=== PATIENT | female | born 1950 | race Caucasian/White ===

== ENCOUNTER 2016-08-19 08:46 | Day surgery (SDC) | payer MEDICARE, OTHER ==
[2016-08-19] MEDS ORDERED: LACTATED RINGERS 1,000 ML IV ONE ×2 (09:19→11:38)
[2016-08-19] MEDS ORDERED: fentaNYL 250 MCG/5 ML VIAL IVP ONE (11:09)
[2016-08-19] MEDS ORDERED: MIDAZOLAM 2 MG/2 ML VIAL IVP ONE (11:09)
== END 2016-08-19 08:47 | disposition home or self-care (01) ==
PROC: 0DBL8ZZ Excision of Transverse Colon, Via Natural or Artificial Opening Endoscopic (ICD-10-PCS; principal; 2016-08-19 10:00)
DX: Z12.11 Encounter for screening for malignant neoplasm of colon (principal); D12.3 Benign neoplasm of transverse colon; K57.30 Diverticulosis of large intestine without perforation or abscess without bleeding; K64.8 Other hemorrhoids; Z80.0 Family history of malignant neoplasm of digestive organs; R03.0 Elevated blood-pressure reading, without diagnosis of hypertension; Z83.3 Family history of diabetes mellitus; E78.5 Hyperlipidemia, unspecified; E55.9 Vitamin D deficiency, unspecified; Z13.29 Encounter for screening for other suspected endocrine disorder
CPT/HCPCS: 45380; 80053; 80061; 83036; 84443; 85025; 88305; J3010; J7120

== ENCOUNTER 2016-08-19 09:38 | Outpatient (CLI) | payer MEDICARE, OTHER | END 2016-08-19 09:39 | disposition home or self-care (01) | DX: R03.0 Elevated blood-pressure reading, without diagnosis of hypertension (principal); Z83.3 Family history of diabetes mellitus; E78.5 Hyperlipidemia, unspecified; E55.9 Vitamin D deficiency, unspecified; Z13.29 Encounter for screening for other suspected endocrine disorder ==

== ENCOUNTER 2020-01-26 07:00 | Outpatient (CLI) | payer MEDICARE, OTHER | END 2020-01-26 23:59 | disposition home or self-care (01) | LOC: LAB.R 07:00 | PROVIDERS: ATTEND Registered Nurse | DX: R19.4 Change in bowel habit (principal) | CPT/HCPCS: 81599; 82274; 87045; 87046; 87177; 87209; 87427 ==

== ENCOUNTER 2020-01-27 07:50 | Outpatient (CLI) | payer MEDICARE, OTHER ==
[2020-01-27 15:02] LABS: BASOPHILS % (AUTO) 0.6 %; EOSINOPHILS # (AUTO) 0.2 10^3/uL (0.0-0.7); EOSINOPHILS % (AUTO) 3.5 %; LYMPHOCYTES # (AUTO) 1.4 10^3/uL (1.5-3.5); LYMPHOCYTES % (AUTO) 28.5 %; MEAN CORPUSCULAR HEMOGLOBIN 28.8 pg (27.0-31.0); MEAN CORPUSCULAR VOLUME 92.9 fL (81.0-99.0); MONOCYTES # (AUTO) 0.4 10^3/uL (0.0-1.0); MONOCYTES % (AUTO) 8.5 %; NEUTROPHILS # (AUTO) 2.8 10^3/uL (1.5-6.6); NEUTROPHILS % (AUTO) 58.7 %; PLT - PLATELET COUNT 208 10^3/uL (130-450); RED BLOOD COUNT 4.51 10^6/uL (4.20-5.40); RED CELL DISTRIBUTION WIDTH 13.4 % (12.0-15.0); WHITE BLOOD COUNT 4.8 x10^3/uL (4.8-10.8)
[2020-01-27 15:28] LABS: ALBUMIN 4.1 g/dL (3.2-5.5); ALBUMIN/GLOBULIN RATIO 1.4 (1.0-2.2); ALKALINE PHOSPHATASE 52 IU/L (42-121); ALT ALANINE AMINOTRANSFERASE 17 IU/L (10-60); AMYLASE 88 U/L (28-100); AST ASPARTATE AMINOTRANSFERASE 22 IU/L (10-42); BILIRUBIN,TOTAL 0.8 mg/dL (0.2-1.0); BUN - BLOOD UREA NITROGEN 13 mg/dL (6-20); CALCIUM 9.5 mg/dL (8.5-10.3); CARBON DIOXIDE - CO2 26 mmol/L (21-32); CHLORIDE 105 mmol/L (101-111); CHOL/HDL RATIO 3.4 (<4.4); CHOLESTEROL 299 mg/dL; CREATININE 0.9 mg/dL (0.4-1.0); GLUCOSE 91 mg/dL (70-100); HDL CHOLESTEROL 88 mg/dL; LDL CHOLESTEROL,CALCULATED 197 mg/dL; LDL/HDL RATIO 2.2 (<4.4); LIPASE 38 U/L (22-51); SODIUM 138 mmol/L (135-145); VLDL CHOLESTEROL 14 mg/dL
[2020-01-27 15:31] LABS: CRP - C-REACTIVE PROTEIN < 1.0 mg/dL (0-1.0)
== END 2020-01-27 07:51 | disposition home or self-care (01) ==
LOC: LAB.S 07:50
PROVIDERS: ATTEND Registered Nurse
DX: E78.5 Hyperlipidemia, unspecified (principal); R19.4 Change in bowel habit; F43.21 Adjustment disorder with depressed mood; K57.90 Diverticulosis of intestine, part unspecified, without perforation or abscess without bleeding; Z83.3 Family history of diabetes mellitus
CPT/HCPCS: 36415; 80053; 80061; 82150; 83690; 83721; 84443; 85025; 86140; 87177; 87209

== ENCOUNTER 2020-04-18 12:57 | Outpatient (CLI) | payer MEDICARE, OTHER ==
--- NOTE | 2020-04-25 11:18 | Mammography Report ---
BILATERAL DIGITAL SCREENING MAMMOGRAM 3D/2D: 04/18/2020 CLINICAL: Routine screening. Additional films were requested but not obtained. There are scattered fibroglandular elements in bot h breasts. There is an oval equal density focal asymmetry with an indistinct margin in the right breast at 8 o'c lock posterior depth. There is an oval equal density focal asymmetry with an indistinct margin in the left breast central t o the nipple anterior depth. No other significant masses or calcifications are seen in either breast. IMPRESSION: INCOMPLETE: NEED PRIOR STUDIES FOR COMPARISON The oval equal density focal asymmetry in the right breast at 8 o'clock posterior depth is indetermin ate. Mediolateral and spot compression views as well as additional views with possible ultrasound ar e recommended. The oval equal density focal asymmetry in the left breast central to the nipple anterior depth is ind eterminate. Mediolateral and spot compression views as well as additional views with possible ultras ound are recommended. This exam was interpreted at Station ID: [id number]. NOTE: For mammograms, a report in lay terms will be sent to the patient. Approximately 15% of breast malignancies will not be visualized mammographically. In the management of a palpable breast mass, a negative mammogram must not discourage biopsy of a clinically suspicious lesion. Electronically Signed By: Albert wong/kendra:04/25/2020 09:01:39 ACR BI-RADS Category 0 Need prior studies for comparison 3340F PARENCHYMAL PATTERN: (A) - The breast(s) demonstrate(s) scattered fibroglandular densities. BI-RADS CATEGORY: (0) - 0 Mammo and [place] [id number] Immediate follow-up LATERALITY: (B)
== END 2020-04-18 12:58 | disposition home or self-care (01) ==
LOC: DI 12:57
PROVIDERS: ATTEND Registered Nurse
DX: Z12.31 Encounter for screening mammogram for malignant neoplasm of breast (principal); R92.8 Other abnormal and inconclusive findings on diagnostic imaging of breast

== ENCOUNTER 2020-06-12 10:10 | Outpatient (CLI) | payer MEDICARE, OTHER ==
--- NOTE | 2020-06-13 10:09 | Ultrasound Report ---
LIMITED ULTRASOUND OF RIGHT BREAST: 06/12/2020 CLINICAL: Patient returns today to evaluate a focal asymmetry in the right breast. Comparison is made to exams dated: 06/12/2020 mammogram, 04/18/2020 mammogram - [facility], 09/27/2012 mammogram, and 10/11/2008 mammogram - [facility]. Ultrasound of the right breast 8 o'clock region was performed. Dense fibroglandular tissue but no mass is identifed in the mammographic area of concern in the right breast at the 8 o'clock position 11 cm from the nipple. The fibroglandular tissue has similar morpho logic features to the previously seen focal asymmetry and is felt to account for the mammography find ing. IMPRESSION: NEGATIVE There is no sonographic evidence of malignancy. A 1 year screening mammogram is recommended. This exam was interpreted at Station ID: [id number]. Electronically Signed By: Santiago cleveland/kendra:06/12/2020 12:46:26 Ultrasound BI-RADS: 1 Negative BI-RADS CATEGORY: (1) - 1 RECOMMENDATION: (ANNUAL) - Recommend routine annual screening mammography. [id number] 1 year screening LATERALITY: (B)
--- NOTE | 2020-06-13 10:09 | Ultrasound Report ---
LIMITED ULTRASOUND OF LEFT BREAST: 06/12/2020 CLINICAL: Patient returns today to evaluate a focal asymmetry in the left breast. Comparison is made to exams dated: 06/12/2020 mammogram, 04/18/2020 mammogram - [facility], 09/27/2012 mammogram, and 10/11/2008 mammogram - [facility]. Ultrasound of the left breast 4 o'clock, and retroareolar regions was performed. Dense fibroglandular tissue but no mass is identifed in the mammographic area of concern at the 4 o'c lock position retroareolar depth. IMPRESSION: NEGATIVE There is no sonographic evidence of malignancy. A 1 year screening mammogram is recommended. This exam was interpreted at Station ID: [id number]. Electronically Signed By: Santiago cleveland/kendra:06/12/2020 12:47:39 Ultrasound BI-RADS: 1 Negative BI-RADS CATEGORY: (1) - 1 RECOMMENDATION: (ANNUAL) - Recommend routine annual screening mammography. [id number] 1 year screening LATERALITY: (B)
--- NOTE | 2020-06-13 10:09 | Mammography Report ---
BILATERAL DIGITAL DIAGNOSTIC MAMMOGRAM 3D/2D: 06/12/2020 CLINICAL: Additional evaluation requested from prior study. Comparison is made to exams dated: 04/18/2020 mammogram - [facility], 09/27/2012 [facility], and 10/11/2008 mammogram - [facility]. There are scattered fibroglandular north fork ents in both breasts. There is an irregular equal density focal asymmetry in the right breast at 8 o'clock posterior depth. There is an oval equal density focal asymmetry in the left breast at 4 o'clock in the retroareolar re gion. No other significant masses or calcifications are seen in either breast. IMPRESSION: INCOMPLETE: NEEDS ADDITIONAL IMAGING EVALUATION The irregular equal density focal asymmetry in the right breast at 8 o'clock posterior depth has a di fferential diagnosis of fibroglandular tissue and is indeterminate. An ultrasound is recommended. The oval equal density focal asymmetry in the left breast at 4 o'clock in the retroareolar region has a differential diagnosis of fibroglandular tissue and is indeterminate. An ultrasound is recommende d. This exam was interpreted at Station ID: [id number]. NOTE: For mammograms, a report in lay terms will be sent to the patient. Approximately 15% of breast malignancies will not be visualized mammographically. In the management of a palpable breast mass, a negative mammogram must not discourage biopsy of a clinically suspicious lesion. SUMMARY: Targeted ultrasound is recommended for further evaluation and will be scheduled immediately following this exam. Electronically Signed By: Santiago cleveland/kendra:06/12/2020 12:42:33 ACR BI-RADS Category 0: Incomplete 3340F PARENCHYMAL PATTERN: (A) - The breast(s) demonstrate(s) scattered fibroglandular densities. BI-RADS CATEGORY: (0) - 0 Ultrasound [id number] Immediate follow-up LATERALITY: (B)
== END 2020-06-12 10:11 | disposition home or self-care (01) ==
LOC: DI 10:10
PROVIDERS: ATTEND Registered Nurse
DX: R92.8 Other abnormal and inconclusive findings on diagnostic imaging of breast (principal)

== ENCOUNTER 2021-01-21 14:13 | Outpatient (CLI) | payer MEDICARE, OTHER ==
--- NOTE | 2021-01-21 16:23 | DEXA Report ---
PROCEDURE: Dexa Spine and/or Hip INDICATIONS: POST MENOPAUSAL TECHNIQUE: Dual energy x-ray absorptiometry (DXA) was performed on a [employer] [facility] System. Regions measur ed are the AP Spine, femoral neck, and if needed forearm. Forearm was obtained secondary to excessive spinal densities. COMPARISON: None. FINDINGS: Lumbar Spine: Bone Mineral Density 1.248 g/cm/cm,T score 0.6, normal Left Hip: Bone Mineral Density 0.862 g/cm/cm,T score -1.2, minimal osteopenia Left Femoral Neck: Bone Mineral Density 0.880 g/cm/cm, T score -1.1, minimal osteopenia Left forearm: Bone Mineral Density 0.547 g/cm/cm, T score -2.1, moderate to severe osteopenia. (T score greater or equal to -1.0: NORMAL) (T score from -1.1 to -2.4: OSTEOPENIA) (T score less than or equal to -2.5 to: OSTEOPOROSIS) Impression: Moderate to severe osteopenia in the forearm as above. Patients with diagnosis of osteoporosis or osteopenia should have regular bone mineral density assess ment. For those eligible for Medicare, routine testing is allowed once every 2 years. Testing frequ ency can be increased for patients who have rapidly progressing disease or for those who are receivin g medical therapy to restore bone mass. Reviewed by: Aissatou Miguel MD on 01/21/2021 4:22 PM PDT Approved by: Aissatou Miguel MD on 01/21/2021 4:22 PM PDT Station ID: [id number]
== END 2021-01-21 14:14 | disposition home or self-care (01) ==
LOC: DI 14:13
PROVIDERS: ATTEND Registered Nurse
DX: Z78.0 Asymptomatic menopausal state (principal); M85.89 Other specified disorders of bone density and structure, multiple sites

== ENCOUNTER 2021-02-19 07:30 | Outpatient (CLI) | payer MEDICARE, OTHER ==
[2021-02-19 14:51] LABS: BASOPHILS # (AUTO) 0.1 10^3/uL (0.0-0.1); BASOPHILS % (AUTO) 0.8 %; EOSINOPHILS # (AUTO) 0.2 10^3/uL (0.0-0.7); EOSINOPHILS % (AUTO) 2.4 %; HCT - HEMATOCRIT 44.2 % (37.0-47.0); HGB - HEMOGLOBIN 13.7 g/dL (12.0-16.0); LYMPHOCYTES # (AUTO) 1.4 10^3/uL (1.5-3.5); LYMPHOCYTES % (AUTO) 22.8 %; MEAN CORPUSCULAR HEMOGLOBIN 29.8 pg (27.0-31.0); MEAN CORPUSCULAR VOLUME 96.1 fL (81.0-99.0); MONOCYTES # (AUTO) 0.5 10^3/uL (0.0-1.0); MONOCYTES % (AUTO) 7.3 %; NEUTROPHILS # (AUTO) 4.1 10^3/uL (1.5-6.6); NEUTROPHILS % (AUTO) 66.4 %; PLT - PLATELET COUNT 227 10^3/uL (130-450); RED CELL DISTRIBUTION WIDTH 13.4 % (12.0-15.0); WHITE BLOOD COUNT 6.2 x10^3/uL (4.8-10.8)
[2021-02-19 15:22] LABS: ALBUMIN 4.2 g/dL (3.2-5.5); ALBUMIN/GLOBULIN RATIO 1.4 (1.0-2.2); ALKALINE PHOSPHATASE 50 IU/L (42-121); ALT ALANINE AMINOTRANSFERASE 13 IU/L (10-60); AST ASPARTATE AMINOTRANSFERASE 24 IU/L (10-42); BILIRUBIN,TOTAL 0.9 mg/dL (0.2-1.0); BUN - BLOOD UREA NITROGEN 16 mg/dL (6-20); CALCIUM 9.1 mg/dL (8.5-10.3); CARBON DIOXIDE - CO2 27 mmol/L (21-32); CHLORIDE 103 mmol/L (101-111); CHOLESTEROL 276 mg/dL; CREATININE 0.8 mg/dL (0.4-1.0); GFR - MDRD 71 (>89); GLUCOSE 87 mg/dL (70-100); HDL CHOLESTEROL 93 mg/dL; LDL CHOLESTEROL,CALCULATED 165 mg/dL; LDL/HDL RATIO 1.8 (<4.4); POTASSIUM 4.3 mmol/L (3.5-5.0); SODIUM 139 mmol/L (135-145); TOTAL PROTEIN 7.2 g/dL (6.7-8.2); TRIGLYCERIDES 88 mg/dL; VLDL CHOLESTEROL 18 mg/dL
[2021-02-19 15:32] LABS: THYROID STIMULATING HORMONE 5.3 uIU/mL (0.34-5.60)
== END 2021-02-19 07:31 | disposition home or self-care (01) ==
LOC: LAB.S 07:30
PROVIDERS: ATTEND Registered Nurse
DX: Z79.899 Other long term (current) drug therapy (principal); E78.5 Hyperlipidemia, unspecified; Z83.3 Family history of diabetes mellitus
CPT/HCPCS: 36415; 80053; 80061; 83721; 84443; 85025

== ENCOUNTER 2021-05-02 08:18 | Day surgery (SDC) | payer MEDICARE, OTHER ==
[~2021-05-02 08:18] MED LIST: BRIMONIDINE 0.2% OPHTH DROPS 5 ML ONE; CYCLOPENTOLATE 1% OPHTH DROPS 2 ML ONE; KETOROLAC 0.45% OPHTH DROPS ONE; PHENYLEPHRINE 2.5% OPHTH 2 ML DROPS ONE; PROPARACAINE 0.5% OPHTH DROPS 15 ML ONE; TIMOLOL 0.5% OPHTH DROPS ONE; TRIAMCIN/MOXIFLOX OPHTHALMIC 0.6 ML VIAL IO ONE
[2021-05-02] MEDS ORDERED: ATROPINE ABBOJECT 1 MG/10 ML SYRINGE IVP PRN (09:09)
[2021-05-02] MEDS ORDERED: ONDANSETRON 4 MG/2 ML VIAL IVP PRN (09:09)
[2021-05-02] MEDS ORDERED: HYDROmorphone 0.5 MG/0.5 ML SYRINGE IVP PRN (09:09)
[2021-05-02] MEDS ORDERED: ePHEDrine 50 MG/ML VIAL IVP PRN (09:09)
[2021-05-02] MEDS ORDERED: MORPHINE 2 MG/ML CARPUJECT IVP PRN (09:09)
[2021-05-02] MEDS ORDERED: METOCLOPRAMIDE 10 MG/2 ML VIAL IVP PRN (09:09)
[2021-05-02] MEDS ORDERED: NALOXONE 0.4 MG/ML VIAL IVP PRN (09:09)
[2021-05-02] MEDS ORDERED: fentaNYL 100 MCG/2 ML VIAL IVP PRN (09:09)
[2021-05-02] MEDS ORDERED: MIDAZOLAM 2 MG/2 ML VIAL ONE (09:17)
[2021-05-02] MEDS ORDERED: LACTATED RINGERS 1,000 ML IV ONE (09:37)
--- NOTE | 2021-05-02 09:37 | ANESTHESIA ---
Pre-Anesthesia VS, & Labs - Diagnosis right eye cataract - Procedure Right CATIOL Vital Signs: Temp Pulse Resp BP Pulse Ox 36.5 C 48 L 16 126/68 100 05/02/21 08:51 05/02/21 08:51 05/02/21 08:51 05/02/21 08:51 05/02/21 08:51 Height: 5 ft 6 in Weight (kg): 66.8 kg Body Mass Index: 23.8 BMI Classification: Healthy weight - NPO >8 hours - Is Patient ?: No - Lab Results Lab results reviewed: Yes Home Medications and Allergies Active Medications Atropine Sulfate (Atropine Abboject 1 Mg/10 Ml Syringe) 0.5 mg IVP Q5M PRN PRN Reason: Bradycardia Stop: 05/03/21 09:09 Ephedrine Sulfate (Ephedrine 50 Mg/Ml Vial) 10 mg IVP Q5M PRN PRN Reason: HYPOTENSION Stop: 05/03/21 09:09 Fentanyl (Fentanyl 100 Mcg/2 Ml Vial) 25 - 50 mcg IVP Q5M PRN PRN Reason: BREAKTHROUGH PAIN (2nd Choice) Stop: 05/03/21 09:09 Hydromorphone HCl (Hydromorphone 0.5 Mg/0.5 Ml Syringe) 0.2 - 0.6 mg IVP Q5M PRN PRN Reason: PAIN (First Choice) Stop: 05/03/21 09:09 Lactated Ringer's (Lr) 1,000 mls @ 100 mls/hr IV .Q10H JAZMÍN Stop: 05/02/21 19:59 Metoclopramide HCl (Metoclopramide 10 Mg/2 Ml Vial) 10 mg IVP Q6HR PRN PRN Reason: N/V not relieved by Zofran Morphine Sulfate (Morphine 2 Mg/Ml Carpuject) 2 - 4 mg IVP Q5M PRN PRN Reason: PAIN (3rd Choice) Stop: 05/03/21 09:09 Naloxone HCl (Naloxone 0.4 Mg/Ml Vial) 0.1 mg IVP Q2M PRN PRN Reason: RESP RATE <8 Stop: 05/03/21 09:09 Ondansetron HCl (Ondansetron 4 Mg/2 Ml Vial) 4 mg IVP ONCE PRN PRN Reason: N/V (First Choice) Stop: 05/03/21 09:09 Cholecalciferol (Vitamin D3) [Vitamin D] 2,000 unit PO DAILY 08/18/16 flaxseed oiL [[place]-3 Flaxseed Oil] 1,000 mg PO DAILY 08/18/16 Allergies/Adverse Reactions: Allergies Allergy/AdvReac Type Severity Reaction Status Date / Time No Known Drug Allergies Allergy Verified 08/18/16 15:08 Anes History & Medical History - Anesthetic History Anesthesia Complications: reports: No previous complications Family history of Anesthesia Complications: Denies Family history of Malignant Hyperthermia: Denies - Medical History Cardiovascular: reports: High cholesterol Pulmonary: reports: None Gastrointestinal: reports: None Urinary: reports: None Musculoskeletal: reports: None Endocrine/Autoimmune: reports: None Skin: reports: None - Surgical History General: reports: Cholecystectomy, Colonoscopy Gynecologic: reports: Tubal ligation Exam General: Alert, Oriented x3, Cooperative, No acute distress Dental: WNL Mouth Openin Fingerbreadth Neck Mobility: Normal Mallampati classification: I Respiratory: Lungs clear, Normal breath sounds, No respiratory distress, No accessory muscle use Cardiovascular: Regular rate, Normal S1, Normal S2, No murmurs Plan Anesthesia Type: MAC Consent for Procedure(s) Verified and Reviewed: Yes Code Status: Attempt Resuscitation ASA classification: 2-Mild systemic disease Is this case an emergency?: No
[2021-05-02] MEDS ORDERED: PROPARACAINE 0.5% OPHTH DROPS 15 ML EACHEYE ONE (09:48)
[2021-05-02] MEDS ORDERED: EPINEPHrine 1 MG/ML AMP IR ONE (09:48)
[2021-05-02] MEDS ORDERED: BSS/LIDOCAINE/EPINEPHRINE 1 ML SYRINGE IO ONE (09:48)
[2021-05-02] MEDS ORDERED: TIMOLOL 0.5% OPHTH DROPS OPTH ONE (09:48)
[2021-05-02] MEDS ORDERED: BRIMONIDINE 0.2% OPHTH DROPS 5 ML OPTH ONE (09:48)
[2021-05-02] MEDS ORDERED: TRIAMCIN/MOXIFLOX OPHTHALMIC 0.6 ML VIAL IO ONE (09:48)
[2021-05-02] MEDS ORDERED: LACTATED RINGERS 800 ML IV ONE (09:59)
[2021-05-02] MEDS ORDERED: LACTATED RINGERS 1,000 ML IV SCH (10:00)
--- NOTE | 2021-05-02 10:04 | OPERATIVE REPORT ---
Operative Report - Other Other Information/Narrative: Date of Surgery: 05/02/21 Preop Dx: Visually significant cataract right eye. This was the first cataract surgery. Postop Dx: Same Procedure: Phacoemulsification with posterior chamber intraocular lens implant right eye Surgeon: Dr. João Barrios Anesthesia: Monitored anesthesia care Complications: None Operative Indications: This is a 70-year-old F with progressive vision loss in the right eye due to 2+ nuclear sclerotic, 1+ cortical, and 1+ posterior subcapsular cataract. Best corrected visual acuity was 20/40 with glare to 20/50 vision in the right eye. Indications for surgery were: - Overall decrease in vision - Difficulty seeing words on a computer screen - Difficulty reading - Difficulty seeing words, closed captions, or game scores on TV - Difficulty seeing street signs - Difficulty driving in low light or at night The patient was consented at length concerning the risks and benefits of cataract surgery after which the patient expressed a desire to proceed with surgery. Operative Procedure: The patient was taken into OR#3 and placed under monitored anesthesia care. A surgical time-out was conducted confirming correct patient, correct procedure, and correct surgical site. The patient was given topical anesthesia and then prepped and draped in the usual sterile fashion. The eye was entered at the 6 and 3 oclock positions. Intracameral Shugarcaine was injected into the anterior chamber followed by a dispersive viscoelastic. A continuous-tear curvilinear capsulorhexis was performed. The nucleus was hydrodissected and phacoemulsified. The cortex was evacuated using automated infusion and aspiration. A cohesive viscoelastic was injected into the capsular bag and a 15.5 diopter intraocular lens was inserted into the bag. Infusion and aspiration were used to evacuate the viscoelastic materials from the eye. The wounds were hydrated and the eye inflated to physiologic pressure using balanced salt solution. Approximately 0.25ml of a mixture of triamcinolone and moxifloxacin was injected trans-sclerally into the vitreous in the inferotemporal quadrant using a 30 gauge cannula. An additional 0.55ml of a mixture of triamcinolone and moxifloxacin was injected subconjunctivally in the superior quadrant for infection and inflammation prophylaxis. Wound integrity was checked with Weck-Alexia sponges. The patient was taken from the operating room in good condition and given post-op instructions.
--- NOTE | 2021-05-02 10:06 | ANESTHESIA POST OP EVALUATION ---
Anesthesia Post Eval - Post Anesthesia Eval Vitals: Last Vital Signs Temp 36.7 C 05/02/21 09:59 Pulse 51 L 05/02/21 09:59 Resp 16 05/02/21 09:59 BP 103/59 L 05/02/21 09:59 Pulse Ox 98 05/02/21 09:59 CV Function Including HR & BP: Stable Pain Control: Satisfactory Nausea & Vomiting: Negative Mental Status: Baseline Respiratory Status: Airway Patent Hydration Status: Satisfactory Anesthesia Complications: None
[2021-05-02 10:30] VITALS: BP 124/63
== END 2021-05-02 08:19 | disposition home or self-care (01) ==
LOC: SDS 08:18
PROVIDERS: ATTEND Ophthalmology
DX: H25.811 Combined forms of age-related cataract, right eye (principal)
CPT/HCPCS: 66984; A9270; J3490; J7120; V2787

== ENCOUNTER 2023-04-23 18:12 | Emergency (ER) | payer MEDICARE, OTHER ==
[2023-04-23] MEDS ORDERED: SODIUM CHLORIDE 0.9% 1,000 ML IV STA ×2 (18:35)
[2023-04-23 18:36] VITALS: O2SAT 100
[2023-04-23 18:48] LABS: BASOPHILS % (AUTO) 0.7 %; EOSINOPHILS # (AUTO) 0.2 10^3/uL (0.0-0.7); EOSINOPHILS % (AUTO) 2.5 %; HCT - HEMATOCRIT 43.5 % (37.0-47.0); HGB - HEMOGLOBIN 13.5 g/dL (12.0-16.0); LYMPHOCYTES # (AUTO) 1.3 10^3/uL (1.5-3.5); LYMPHOCYTES % (AUTO) 21.3 %; MEAN CORPUSCULAR HEMOGLOBIN 28.9 pg (27.0-31.0); MEAN CORPUSCULAR VOLUME 93.1 fL (81.0-99.0); MEAN PLATELET VOLUME 8.4 fL (7.9-10.8); MONOCYTES # (AUTO) 0.5 10^3/uL (0.0-1.0); MONOCYTES % (AUTO) 8.3 %; NEUTROPHILS % (AUTO) 66.9 %; PLT - PLATELET COUNT 226 10^3/uL (130-450); RED BLOOD COUNT 4.67 10^6/uL (4.20-5.40); RED CELL DISTRIBUTION WIDTH 12.8 % (12.0-15.0)
--- NOTE | 2023-04-23 18:58 | ED Physician Documentation ---
History of Present Illness - Stated complaint Stated Complaint: CONFUSION - Chief complaint Chief Complaint: Neuro - History obtained from History obtained from: Patient - History of Present Illness Pain level max: 0 Pain level now: 0 - Additonal information Additional information: Patient is a 72-year-old female who presents to the emergency department complaining of feeling "vague". She is unable to define this any further. Patient states that she was at a friend's house today and she was doing her colonoscopy prep for tomorrow. She states that she went out to the couch and reportedly fell asleep. She states she does not remember falling asleep and does not remember the time she was asleep. She now states that she just does not feel like herself. There was no focal neurological deficits. No speech difficulty. No numbness or tingling. Has not had similar symptoms previously. No changes to her medications. No recent illnesses. No fevers. No chills. No cough. No congestion. Review of Systems Constitutional: denies: Fever, Chills Eyes: denies: Photophobia Ears: denies: Loss of hearing, Ear pain, Drainage/discharge Nose: denies: Rhinorrhea / runny nose, Congestion Throat: denies: Sore throat Respiratory: denies: Cough GI: denies: Nausea, Vomiting, Diarrhea : denies: Dysuria Skin: denies: Rash PD PAST MEDICAL HISTORY - Past Medical History Past Medical History: Yes Cardiovascular: High cholesterol Respiratory: None Endocrine/Autoimmune: None GI: None : None HEENT: Other Psych: None, Claustrophobia Musculoskeletal: None Derm: None - Past Surgical History Past Surgical History: Yes 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 - Present Medications Home Medications: Ambulatory Orders Medication Instructions Recorded Confirmed Cholecalciferol (Vitamin D3) 2,000 unit PO DAILY 08/18/16 04/23/23 [Vitamin D] Sherwood-3/Dha/Epa/Fish Oil [Fish Oil 1 cap PO DAILY 04/23/23 04/23/23 1,000 mg Softgel] - Allergies Allergies/Adverse Reactions: Allergies Allergy/AdvReac Type Severity Reaction Status Date / Time No Known Drug Allergies Allergy Verified 04/23/23 18:33 - Social History Does the pt smoke?: No Smoking Status: Never smoker Does the pt drink ETOH?: No Does the pt have substance abuse?: No - Immunizations Immunizations are current?: Yes - POLST Patient has POLST: No PD ED PE NORMAL - Vitals Vital signs reviewed: Yes - General General: Alert and oriented X 3, No acute distress - HEENT HEENT: Atraumatic, PERRL, EOMI, Moist mucous membranes - Neck Neck: Supple, no meningeal sign, No bony TTP - Cardiac Cardiac: RRR, Strong equal pulses - Respiratory Respiratory: No respiratory distress, Clear bilaterally - Abdomen Abdomen: Soft, Non tender, Non distended - Back Back: No CVA TTP, No spinal TTP - Derm Derm: Warm and dry - Extremities Extremities: No edema, No calf tenderness / cord - Neuro Neuro: Alert and oriented X 3, bookbinder chief 2-12 intact, No motor deficit, No sensory deficit, Other (occasional word finding difficulties) Eye Opening: Spontaneous Motor: Obeys Commands Verbal: Oriented GCS Score: 15 - Psych Psych: Normal mood, Normal affect Results - Vitals Vitals: Vital Signs - 24 hr 04/23/23 04/23/23 04/23/23 18:19 20:26 20:58 Temperature 36.9 C Heart Rate 58 L 52 L 69 Respiratory 18 16 16 Rate Blood Pressure 163/73 H 164/73 H 147/78 H O2 Saturation 100 100 100 Oxygen O2 Source Room air - EKG (time done) 1841 EKG releavant findings:: EKG personally interpreted by author of this note. Relevant findings are: Rate: Rate (enter#) (52) Rhythm: NSR [place]: Normal Intervals: Normal [place] QRS: Normal Ischemia: Normal ST segments - Labs Labs: Laboratory Tests 04/23/23 04/23/23 04/23/23 18:24 18:42 18:42 WBC 6.0 RBC 4.67 Hgb 13.5 Hct 43.5 MCV 93.1 MCH 28.9 MCHC 31.0 L RDW 12.8 Plt Count 226 MPV 8.4 Neut # (Auto) 4.0 Lymph # (Auto) 1.3 L [place] # (Auto) 0.5 Eos # (Auto) 0.2 Baso # (Auto) 0.0 Absolute Nucleated RBC 0.00 Nucleated RBC % 0.0 Sodium 137 Potassium 3.8 Chloride 103 Carbon Dioxide 27 Anion Gap 7.0 BUN 11 Creatinine 0.7 Estimated GFR (MDRD) 82 L Glucose 103 POC Whole Bld Glucose 92 Calcium 9.6 Phosphorus 4.1 Magnesium 1.8 Total Bilirubin 0.4 AST 26 ALT 22 Alkaline Phosphatase 62 Total Protein 7.3 Albumin 4.5 Globulin 2.8 Albumin/Globulin Ratio 1.6 Lipase 34 Urine Color Urine Clarity Urine pH Ur Specific Humble Urine Protein Urine Glucose (UA) Urine Ketones Urine Occult Blood Urine Nitrite Urine Bilirubin Urine Urobilinogen Ur Leukocyte Esterase Ur Microscopic Review Urine Culture Comments Nasal Adenovirus (PCR) Nasal B. parapertussis DNA (PCR) Nasal Coronavir 229E PCR Nasal Coronavir HKU1 PCR Nasal Coronavir NL63 PCR Nasal Coronavir OC43 PCR Nasal Enterovir/Rhinovir PCR Nasal Influenza B PCR Nasal Influenza A PCR Nasal Parainfluen 1 PCR Nasal Parainfluen 2 PCR Nasal Parainfluen 3 PCR Nasal Parainfluen 4 PCR Nasal RSV (PCR) Nasal B.pertussis DNA PCR Nasal C.pneumoniae (PCR) Vimal Human Metapneumo PCR Nasal M.pneumoniae (PCR) Nasal SARS-CoV-2 (PCR) 04/23/23 04/23/23 20:20 20:35 WBC RBC Hgb Hct MCV MCH MCHC RDW Plt Count MPV Neut # (Auto) Lymph # (Auto) [place] # (Auto) Eos # (Auto) Baso # (Auto) Absolute Nucleated RBC Nucleated RBC % Sodium Potassium Chloride Carbon Dioxide Anion Gap BUN Creatinine Estimated GFR (MDRD) Glucose POC Whole Bld Glucose Calcium Phosphorus Magnesium Total Bilirubin AST ALT Alkaline Phosphatase Total Protein Albumin Globulin Albumin/Globulin Ratio Lipase Urine Color STRAW Urine Clarity CLEAR Urine pH 5.5 Ur Specific Humble <=1.005 Urine Protein NEGATIVE Urine Glucose (UA) NEGATIVE Urine Ketones NEGATIVE Urine Occult Blood NEGATIVE Urine Nitrite NEGATIVE Urine Bilirubin NEGATIVE Urine Urobilinogen 0.2 (NORMAL) Ur Leukocyte Esterase NEGATIVE Ur Microscopic Review NOT INDICATED Urine Culture Comments NOT INDICATED Nasal Adenovirus (PCR) NOT DETECTED Nasal B. parapertussis DNA (PCR) NOT DETECTED Nasal Coronavir 229E PCR NOT DETECTED Nasal Coronavir HKU1 PCR NOT DETECTED Nasal Coronavir NL63 PCR NOT DETECTED Nasal Coronavir OC43 PCR NOT DETECTED Nasal Enterovir/Rhinovir PCR NOT DETECTED Nasal Influenza B PCR NOT DETECTED Nasal Influenza A PCR NOT DETECTED Nasal Parainfluen 1 PCR NOT DETECTED Nasal Parainfluen 2 PCR NOT DETECTED Nasal Parainfluen 3 PCR NOT DETECTED Nasal Parainfluen 4 PCR NOT DETECTED Nasal RSV (PCR) NOT DETECTED Nasal B.pertussis DNA PCR NOT DETECTED Nasal C.pneumoniae (PCR) NOT DETECTED Vimal Human Metapneumo PCR NOT DETECTED Nasal M.pneumoniae (PCR) NOT DETECTED Nasal SARS-CoV-2 (PCR) NOT DETECTED - Rads (name of study) head CT Relevant Findings:: Final report received, See rad report angio head and neck CT Relevant Findings:: Final report received, See rad report brain MRI Relevant Findings:: Final report received, See rad report PD Medical Decision Making - ED course Complexity details: reviewed results, re-evaluated patient, considered differential, d/w patient, d/w family ED course: Unclear etiology of the patient's symptoms earlier. She is back to her normal baseline now. No word finding difficulties. Ambulating without difficulty. No significant lab abnormalities to explain her symptoms. No acute findings on brain MRI or CT angiogram of the head and neck. Possible reaction to her colonoscopy prep? No other focal neurological deficits. No recent illnesses. No evidence of sepsis. As the patient is back to her normal baseline, we will have her continue her current medications and follow-up with her doctor for further care. Patient counseled regarding signs and symptoms for which I believe and urgent re-evaluation would be necessary. Patient with good understanding of and agreement to plan and is comfortable going home at this time This document was made in part using voice recognition software. While efforts are made to proofread this document, sound alike and grammatical errors may occur. Departure - Departure Disposition: 01 Home, Self Care Clinical Impression: Altered mental status Qualifiers: Altered mental status type: transient alteration of awareness Qualified Code(s): R40.4 - Transient alteration of awareness Condition: Good Instructions: ED Confusion Follow-Up: Staci Ji ARNP [Primary Care Provider] - Within 1 week Comments: Please follow-up with your doctor for further care. Continue your current medications at home. Your MRI, head CT, laboratory testing and CT angiogram of your head and neck do not show any acute abnormalities today. There is no evidence of stroke. Your laboratory testing does not show any significant abnormalities. The cause of your symptoms is unclear. Please return if you worsen. Forms: PCP List Discharge Date/Time: 04/23/23 21:22 NIHSS - Time Time: 18:30 - Level of Consciousness Level of consciousness: (0) Alert, Keenly responsive LOC Questions: (0) Answers both Q's correct LOC Commands: (0) Performs both correctly - Gaze Best Gaze: (0) Normal - Visual Visual: (0) No loss - Facial Palsy Facial Palsy: (0) Normal, symmetrical movement - Motor Arms (both separate) Motor Arm (right): (0) No drift Motor Arm (left): (0) No drift - Motor Legs (both separate) Motor Leg (right): (0) No drift Motor Leg (left): (0) No drift - Limb Ataxia Limb Ataxia: (0) Absent - Sensory Sensory: (0) Normal - Best Language Best Language: (1) [id number] - Dysarthria Dysarthria: (0) Normal - Extinction and Inattention (formally neg Extinction and inattention: (0) No abnormality - Total Score/Results Total Score/Result: 1
[2023-04-23 19:06] LABS: ALBUMIN 4.5 g/dL (3.2-5.5); ALBUMIN/GLOBULIN RATIO 1.6 (1.0-2.2); BILIRUBIN,TOTAL 0.4 mg/dL (0.2-1.0); CALCIUM 9.6 mg/dL (8.5-10.3); CREATININE 0.7 mg/dL (0.6-1.3); MAGNESIUM 1.8 mg/dL (1.7-2.3); PHOSPHORUS 4.1 mg/dL (2.5-5.0); POTASSIUM 3.8 mmol/L (3.5-4.5); TOTAL PROTEIN 7.3 g/dL (6.4-8.9)
[2023-04-23] MEDS ORDERED: iohexoL-300 100 ML VIAL IVP ONE (19:45)
--- NOTE | 2023-04-23 20:08 | MRI Report ---
PROCEDURE: BRAIN WO INDICATIONS: word finding difficulty x 3 hours TECHNIQUE: Noncontrast axial T1 spin echo, axial T2 fast spin echo, sagittal and axial FLAIR, coronal T2 fast sp in echo, axial gradient echo, axial diffusion and ADC through the brain. COMPARISON: None. FINDINGS: Image quality: Excellent. CSF Spaces: Basal cisterns are patent. No extra-axial fluid collections. Ventricles are normal in size and shape. Brain: No intracranial masses or hemorrhage. Morris/white matter interface is normal. Brainstem appe ars normal. Diffusion-weighted images demonstrate no acute ischemic insult. No chronic ischemic ins ults. Normal intravascular flow voids are present. A few foci of T2/FLAIR hyperintensities in the p eriventricular and deep white matter of the bilateral cerebral hemispheres compatible with sequela ch ronic small vessel ischemic disease. Mild age-related cortical volume loss. Skull and face: Calvarium has normal marrow signal. Orbits appear normal. Sinuses: Sinuses and mastoids are clear. IMPRESSION: MRI brain without acute intracranial abnormalities. No evidence for acute cerebral ischemia/infarctio n. Reviewed by: Richmond Tran MD on 04/23/2023 8:07 PM PST Approved by: Richmond Tran MD on 04/23/2023 8:07 PM PST Station ID: [id number]
--- NOTE | 2023-04-23 20:15 | CT Report ---
PROCEDURE: HEAD WO INDICATIONS: expressive aphasia TECHNIQUE: Noncontrast 4.5 mm thick angled axial sections acquired from the foramen magnum to the vertex. For r adiation dose reduction, the following was used: automated exposure control, adjustment of mA and/or kV according to patient size. COMPARISON: None. FINDINGS: Image quality: Excellent. CSF spaces: Basal cisterns are patent. No extra-axial fluid collections. Ventricles are normal in size and shape. Brain: No midline shift. No intracranial masses or hemorrhage. Subtle hypodense focus in the left b gladys ganglia, (2/2). No area of hypodensity in a vascular distribution to suggest acute infarction. T here is periventricular hypodensity consistent with chronic microvascular ischemic disease. Age-relat ed parenchymal loss. Skull and face: Calvarium and visualized facial bones are intact, without suspicious lesions. Sinuses: Visualized sinuses and mastoids are clear. IMPRESSION: No acute intracranial pathology identified. Possible prior left basal ganglia lacunar infarct. Reviewed by: Percy Martin MD on 04/23/2023 8:13 PM PST Approved by: Percy Martin MD on 04/23/2023 8:13 PM PST Station ID: [id number]
--- NOTE | 2023-04-23 20:29 | CT Report ---
PROCEDURE: CT Angio Head/Neck INDICATIONS: expressive aphasia CONTRAST: 80mL Omni 300 TECHNIQUE: After the administration of intravenous contrast, 1 mm thick sections acquired through the [place] of [place]. Postcontrast 4.5 mm thick sections then re-acquired from the vertex to the aortic arch. 3-d imensional hmljusv-rwfidjmjb-kgkyihccqu (MIP) and/or volume rendering reformats were acquired of the central intracranial vasculature and neck arterial vasculature. For radiation dose reduction, the fo llowing was used: automated exposure control, adjustment of mA and/or kV according to patient size. COMPARISON: MRI brain from earlier same day. CT head from earlier same day. FINDINGS: Image quality: Diagnostic Brain: No midline shift. No intracranial masses. No abnormal enhancement. Morris-white matter interfa ce appears intact. Likely remote left basal ganglia lacunar infarction. Skull and face: Calvarium and facial bones appear intact, without suspicious lesions. Sinuses: Visualized sinuses and mastoids are clear. HEAD CT ANGIOGRAPHY: Anterior circulation: Scattered atherosclerotic calcifications of the bilateral intracranial internal carotid arteries. Int racranial internal carotid arteries appear patent without high-grade stenosis. There is flow/opacification within the paired anterior cerebral arteries. There is opacification within the middle cerebral arteries. The anterior communicating artery is seen. No aneurysms are seen. No occlusion. Posterior circulation: Visualized portions of the vertebral arteries are patent and join to form a no rmal appearing basilar artery. No evidence for high-grade stenosis. No occlusions. There is opacification of the posterior cerebral arteries. No aneurysms are seen. NECK CT ANGIOGRAPHY: Carotid system: The great vessels demonstrate a conventional anatomy as they arise from the aortic a rch. The origins of the common carotid arteries appear patent. The common carotid arteries appear patent throughout their visualized courses without high grade sten osis. Mild atherosclerotic calcifications of the bilateral carotid bifurcations. The bifurcation regions ar e both patent without high grade stenosis. The internal carotid arteries demonstrate normal calibers and courses. Posterior circulation: The origins of the vertebral arteries both appear patent without hemodynamical ly significant stenosis. The more superior extracranial portions of both vertebral arteries also demonstrate normal courses an d calibers. They join to form a normal appearing basilar artery. Soft tissues: Visualized neck soft tissues demonstrate no suspicious abnormalities. Lung apices are clear. Bones: No suspicious bony lesions. Visualized cervical spine appears normally aligned. No acute compression fractures of the vertebral bodies. IMPRESSION: Negative CT angiogram of the intracranial and neck arterial vasculature without evidence for occlusio n, dissection, or high-grade stenosis. Mild scattered atherosclerotic calcification calcifications. Reviewed by: Richmond Tran MD on 04/23/2023 8:27 PM PST Approved by: Richmond Tran MD on 04/23/2023 8:27 PM PST Station ID: [id number]
[2023-04-23 20:44] LABS: BILIRUBIN,URINE NEGATIVE (NEGATIVE); GLUCOSE, URINE (UA) NEGATIVE (NEGATIVE); KETONES,URINE (UA) NEGATIVE (NEGATIVE); LEUKOCYTE ESTERASE, URINE NEGATIVE (NEGATIVE); NITRITE,URINE NEGATIVE (NEGATIVE); OCCULT BLOOD,URINE NEGATIVE (NEGATIVE); PH,URINE 5.5 PH (5.0-7.5); PROTEIN,URINE NEGATIVE (NEGATIVE); UROBILINOGEN,URINE 0.2 (NORMAL) E.U./dL (NORMAL)
[2023-04-23 20:47] LABS: CLARITY,URINE CLEAR (CLEAR)
[2023-04-23 21:00] VITALS: BP 147/78
[2023-04-23 21:32] LABS: B. PARAPERTUSSIS- RESP PCR PAN NOT DETECTED; B. PERTUSSIS- RESP PCR PANEL NOT DETECTED; C. PNEUMONIAE- RESP PCR PANEL NOT DETECTED; CORONAVIRUS 229E-RESP PCR NOT DETECTED; CORONAVIRUS HKU1-RESP PCR NOT DETECTED; CORONAVIRUS NL63-RESP PCR NOT DETECTED; CORONAVIRUS OC43-RESP PCR NOT DETECTED; HUMAN METAPNEUMOVIRUS NOT DETECTED; INFLUENZA A- RESP PCR PANEL NOT DETECTED; INFLUENZA B - RESP PCR PANEL NOT DETECTED; M. PNEUMONIAE- RESP PCR PANEL NOT DETECTED; PARAINFLUENZA VIRUS 1 NOT DETECTED; PARAINFLUENZA VIRUS 2 NOT DETECTED; PARAINFLUENZA VIRUS 3 NOT DETECTED; PARAINFLUENZA VIRUS 4 NOT DETECTED; RHINOVIRUS/ENTEROVIRUS NOT DETECTED; RSV- RESP PCR PANEL NOT DETECTED; SARS-CoV-2 -RESP PCR PANEL NOT DETECTED
== END 2023-04-23 21:22 | disposition home or self-care (01) ==
LOC: ED 18:12
DX: R40.4 Transient alteration of awareness (principal)
CPT/HCPCS: 36415; 70450; 70496; 70498; 70551; 80053; 81003; 83690; 83735; 84100; 85025; 87633; 93005; 99283; 99284; Q9967; 81001; 87086

== ENCOUNTER 2023-07-03 11:01 | Outpatient (CLI) | payer MEDICARE, OTHER | END 2023-07-03 11:02 | disposition short-term general hospital (02) | LOC: EMS 11:01 | DX: S81.852A Open bite, left lower leg, initial encounter (principal); W54.0XXA Bitten by dog, initial encounter; Y93.89 Activity, other specified; Y99.2 Volunteer activity | CPT/HCPCS: A0425; A0427 ==

== ENCOUNTER 2023-07-12 15:50 | Emergency (ER) | payer MEDICARE, OTHER ==
[2023-07-12 16:11] VITALS: BP 163/68; O2SAT 100
--- NOTE | 2023-07-12 16:26 | ED Physician Documentation ---
PD HPI LOWER EXT INJURY - Stated complaint Stated Complaint: L LEG DOG BITE/DRAINAGE/SWELLING - Chief complaint Chief Complaint: Ext Problem - History obtained from History obtained from: Patient - History of Present Illness PD HPI LOW EXT INJURY LOCATION: Left, Calf Type of injury: Other (bite wounds from dog 9 days prior. Was seen and had sutures of the wounds and Rx Augmentin. Pt states diarrhea from the abx. Was having ongoing swelling of the wounds, but now with increased redness and tender, and having edema around ankle/toes with purple bruising developed. Finished augmentin.) Timing - onset: How many days ago (9) Timing - duration: Days (9) Timing - details: Gradual onset (of the edema, bruising, and now redness.), Still present Associated symptoms: No: Weakness, Numbness Similar symptoms before: Has not had sx before Recently seen: Emergency Dept (with the initial injury 9 days ago.) Review of Systems Constitutional: denies: Fever, Chills Neurologic: denies: Focal weakness, Numbness PD PAST MEDICAL HISTORY - Past Medical History Past Medical History: Yes Cardiovascular: High cholesterol Respiratory: None Endocrine/Autoimmune: None GI: None : None HEENT: Other Psych: None, Claustrophobia Musculoskeletal: None Derm: None - Past Surgical History Past Surgical History: Yes General: Cholecystectomy /FORGING DIE SINKER: Tubal ligation - Present Medications Home Medications: Ambulatory Orders Medication Instructions Recorded Confirmed Doxycycline Hyclate 100 mg PO BID 7 Days #14 cap 07/12/23 Mupirocin 2% Oint [Bactroban 2% 1 applic TOP TID #15 gm 07/12/23 Oint] - Allergies Allergies/Adverse Reactions: Allergies Allergy/AdvReac Type Severity Reaction Status Date / Time No Known Drug Allergies Allergy Verified 07/12/23 16:08 - Social History Does the pt smoke?: No Smoking Status: Never smoker Does the pt drink ETOH?: No Does the pt have substance abuse?: No - Immunizations Immunizations are current?: Yes - POLST Patient has POLST: No PD ED PE NORMAL - Vitals Vital signs reviewed: Yes - General General: Alert and oriented X 3, No acute distress, Well developed/nourished - Derm Derm: Warm and dry - Extremities Extremities: Other (left calf with sutured wounds multiple with swelling and some redness around wounds. No drainage nor fluctuant feeling. [place]/swelling below wounds in ankle/foot, with ecchymosis purple noted sides of foot and base of toes c/w leaching blood in tendons.) - Neuro Neuro: No motor deficit, No sensory deficit Results - Vitals Vitals: Oxygen O2 Source Room air PD Medical Decision Making - ED course Complexity details: considered differential (she was prescribed Augmentin at time of repair. She had finished those without problems (some diarrhea) with some redness of wounds. This is increased now. Presume some increasing wound infection. Does not feel abscess. I would change to more staph coverage at this point. Defer suture removal.), d/w patient ED course: Much of the edema in lower leg/ankle/foot is from bruising going dependently as there is some bruising noted around ankle and some to base of toes. However there is redness and tightnesss at the sutures in calf. No pain/redness/tendeness more proximal and particularly no tenderness/swelling in mid/upper calf. Departure - Departure Disposition: 01 Home, Self Care Clinical Impression: Dog bite of lower extremity, Wound infection Condition: Stable Record reviewed to determine appropriate education?: Yes Prescriptions: Mupirocin 2% Oint [Bactroban 2% Oint] 1 applic TOP TID #15 gm Doxycycline Hyclate 100 mg PO BID 7 Days #14 cap Comments: The swelling and bruising down at the foot and heel and by the toes would be expected with blood within the muscle and muscle sheath gravitating down towards the heel and coming out through the tendon sheath insertions by the foot and toes. This would be irritating to the tissue and swelling around those areas would correspond with that. You do not have any tenderness or swelling or redness above the area of the bites. I do not get a sense clinically of any blood clots in the deep calfs or such. The bite wounds themselves do have enough redness and swelling to them to look like some infection. I would have you take doxycycline twice daily for the next week. Since you had been on the Augmentin and have this appearance, I would try a different antibiotic. Cleanse the area with soap and water gently. Apply mupirocin topical antibiotic. Nonadherent dressings and covering for the area. Given the swelling and such, I do not think that the stitches are ready to come out as yet. I given another 5 or 6 days. I would also suggest Prabhakar wrap from the foot/ankle area up to above the wounds to help with some of the swelling. Elevate and rest your foot often to help reduce swelling as well. I sent your prescriptions to your preferred pharmacy. Continue with Tylenol or ibuprofen as needed for pains. Recheck if not improving well over the next several days or such. Again I would defer suture removal for another 5 or 6 days anyway. Forms: PCP List Discharge Date/Time: 07/12/23 16:50
[2023-07-12] MEDS: DOXYCYCLINE 100 MG TABLET PO STA (16:41)
[2023-07-12] MEDS: MUPIROCIN 2% OINT 1 GM TOP STA (16:41)
== END 2023-07-12 16:50 | disposition home or self-care (01) ==
LOC: ED 15:50
DX: S81.852A Open bite, left lower leg, initial encounter (principal); L08.9 Local infection of the skin and subcutaneous tissue, unspecified; W54.0XXA Bitten by dog, initial encounter; E78.00 Pure hypercholesterolemia, unspecified
CPT/HCPCS: 99282; 99283; A9270

== ENCOUNTER 2023-07-17 08:00 | Outpatient (CLI) | payer MEDICARE, OTHER ==
--- NOTE | 2023-07-17 18:12 | XRAY Report ---
PROCEDURE: Tib/Fib LT INDICATIONS: LEFT LOWER LEG LACERATION TECHNIQUE: 2 views of the tibia and fibula were acquired. COMPARISON: None. FINDINGS: Bones: No fractures or dislocations. Normal alignment. No suspicious bony lesions. Soft tissues: No suspicious soft tissue calcifications or masses. No radiopaque foreign body. Small plantar and calcaneal enthesophytes. IMPRESSION: No acute bony abnormality. Reviewed by: Matheus Geiger MD on 07/17/2023 6:11 PM PST Approved by: Matheus Geiger MD on 07/17/2023 6:11 PM PST Station ID: [id number]
== END 2023-07-17 23:59 | disposition home or self-care (01) ==
LOC: DI.S 08:00
PROVIDERS: ATTEND Registered Nurse
DX: M76.62 Achilles tendinitis, left leg (principal); R60.0 Localized edema; W54.0XXA Bitten by dog, initial encounter

== ENCOUNTER 2023-08-07 08:00 | Outpatient (CLI) | payer MEDICARE, OTHER | END 2023-08-07 23:59 | disposition home or self-care (01) | LOC: LAB.N 08:00 | PROVIDERS: ATTEND Physician Assistant | DX: S81.852D Open bite, left lower leg, subsequent encounter (principal); W54.0XXD Bitten by dog, subsequent encounter | CPT/HCPCS: 87070; 87205 ==